=== PATIENT | male | born 2000 ===

== ENCOUNTER 2024-05-17 17:39 | Inpatient (IN) | payer BC ==
[2024-05-17] MEDS ORDERED: Morphine 2 MG/ML VIAL ONE (18:02)
[2024-05-17] MEDS ORDERED: Ondansetron PF 4 MG/2 ML Vial ONE (18:02)
[2024-05-17] MEDS ORDERED: Boostrix 0.5 ML (Tdap) VIAL (>/=7 yrs of age) ONE (18:03)
[2024-05-17 18:05] LABS: #Basophils 0.07 10x3/uL (0.0-0.2); %Basophils 0.7 % (0.0-1.0); %Eosinophils 4.1 % (0.0-10.0); %Lymphocytes 46.2 % (21.0-51.0); %Monocytes 4.8 % (0.0-10.0); Hematocrit 43.4 % (42.0-52.0); Hemoglobin 15.4 g/dL (14.0-18.0); Mean Corpuscular HGB CONC 35.5 g/dL (32.0-36.0); Mean Corpuscular Hemoglobin 29.6 pg (27.0-31.0); Mean Corpuscular Volume 83.3 fL (78.0-98.0); Mean Platelet Volume 10.2 fL (7.4-10.4); Platelet Count 270 10x3/uL (130-400); RBC Distribution Width 11.6 % (11.5-14.5); Red Blood Cell (RBC) Count 5.21 mill/uL (4.70-6.10)
[2024-05-17] MEDS ORDERED: Ipratropium/Albuterol 3 ML NEB NEB PRN (18:06)
[2024-05-17] MEDS ORDERED: Ondansetron PF 4 MG/2 ML Vial IVP PRN (18:06)
[2024-05-17 18:18] LABS: ALT (SGPT) 46 U/L (8-55); AST (SGOT) 28 U/L (5-34); Albumin 4.3 g/dL (3.5-5.0); Alkaline Phosphatase 76 U/L (40-110); Anion Gap 17 mmol/L (10-20); BUN (Urea Nitrogen) 16 mg/dL (8.9-20.6); Bilirubin, Total 0.3 mg/dL (0.2-1.2); Calc. Creatinine Clearance 0 mL/min (70-130); Calcium 9.3 mg/dL (7.8-10.44); Carbon Dioxide 20 mmol/L (22-29); Chloride 107 mmol/L (98-107); Estimated GFR 85; Globulin 2.8 g/dL (2.4-3.5); Glucose 119 mg/dL (70-105); Potassium 3.3 mmol/L (3.5-5.1); Protein, Total 7.1 g/dL (6.0-8.3); Sodium 141 mmol/L (136-145)
[2024-05-17] MEDS: Ketorolac Tromethamine 30 MG (1 mL) VIAL IVP SCH ×2 (19:00→23:58)
[2024-05-17] MEDS ORDERED: Sodium Chloride 0.9% 1,000 ML IV SCH (20:00)
[2024-05-17 20:18] VITALS: BMI 24.6
[2024-05-17] MEDS: Lactated Ringer's 1,000 ML IV SCH (20:37)
[2024-05-17] MEDS: Senokot S 8.6-50 MG TAB PO SCH (20:38)
[2024-05-17] MEDS: Morphine 4 MG/ML VIAL SLOW IVP PRN (20:38)
[2024-05-17] MEDS: traMADol HCl 50 MG TAB PO SCH (23:59)
[2024-05-18] MEDS ORDERED: CEFAZOLIN 2 GM in Sodium Chloride 0.9% 100 ML IVPB SCH (07:30)
[2024-05-18 08:09] LABS: Anion Gap 11 mmol/L (10-20); BUN (Urea Nitrogen) 14 mg/dL (8.9-20.6); Calc. Creatinine Clearance 156 mL/min (70-130); Calcium 8.5 mg/dL (7.8-10.44); Carbon Dioxide 24 mmol/L (22-29); Chloride 108 mmol/L (98-107); Estimated GFR 130; Glucose 97 mg/dL (70-105); Potassium 3.8 mmol/L (3.5-5.1); Sodium 139 mmol/L (136-145)
[2024-05-18] MEDS: Polyethylene Glycol 3350 17 GM Packet PO SCH (08:35)
[2024-05-18] MEDS: Morphine 2 MG/ML VIAL SLOW IVP PRN (09:04)
[2024-05-18 10:37] LABS: #Basophils 0.04 10x3/uL (0.0-0.2); %Basophils 0.5 % (0.0-1.0); %Eosinophils 3.5 % (0.0-10.0); %Lymphocytes 30.7 % (21.0-51.0); %Monocytes 7.5 % (0.0-10.0); %Neutrophils 57.5 % (42.0-75.0); Hematocrit 36.1 % (42.0-52.0); Hemoglobin 12.4 g/dL (14.0-18.0); Mean Corpuscular HGB CONC 34.3 g/dL (32.0-36.0); Mean Corpuscular Hemoglobin 29.9 pg (27.0-31.0); Platelet Count 189 10x3/uL (130-400); RBC Distribution Width 11.8 % (11.5-14.5); Red Blood Cell (RBC) Count 4.15 mill/uL (4.70-6.10)
[2024-05-18] MEDS ORDERED: fentaNYL PF 100 MCG/2 ML SYRINGE ONE (12:02)
[2024-05-18] MEDS ORDERED: Midazolam HCl 2 mg/2 ml Vial ONE (12:03)
[2024-05-18] MEDS ORDERED: PROPOFOL 20 ML ONE ×2 (12:03→12:58)
[2024-05-18] MEDS ORDERED: Lidocaine 1% PF 5 ML VIAL ONE (12:35)
[2024-05-18] MEDS ORDERED: Dexamethasone 20 MG/5 ML VIAL ONE (12:50)
[2024-05-18] MEDS ORDERED: Ondansetron PF 4 MG/2 ML Vial ONE (12:50)
[2024-05-18] MEDS ORDERED: PHENYLEPHRINE-NS 100 MCG/ML 10 ML SYRINGE ONE (12:50)
[2024-05-18] MEDS ORDERED: Ketorolac Tromethamine 30 MG (1 mL) VIAL ONE (13:10)
[2024-05-18] MEDS ORDERED: fentaNYL 50 mcg/mL 1 mL Vial ONE (14:39)
[2024-05-18] MEDS ORDERED: HYDROmorphone 0.5 MG/0.5 ML SYRINGE ONE (15:08)
[2024-05-18] MEDS ORDERED: Ondansetron HCl/PF 4 MG/2 ML Vial IVP PRN (15:15)
[2024-05-18] MEDS ORDERED: Promethazine HCl 25 MG/ML VIAL IM PRN (15:15)
[2024-05-18] MEDS: CEFAZOLIN 2 GM in Sodium Chloride 0.9% 100 ML IVPB SCH (19:54)
[2024-05-18] MEDS: traMADol HCl 50 MG TAB PO PRN (21:22)
[2024-05-19 06:25] LABS: Hematocrit 29.2 % (42.0-52.0); Hemoglobin 10.2 g/dL (14.0-18.0)
[2024-05-19] MEDS: Enoxaparin 40 MG (0.4 mL) SYRINGE SC SCH (08:42)
[2024-05-19 11:25] VITALS: BP 138/72; TEMP 98.1
[2024-05-20] MEDS ORDERED: FLU (Fluarix Triv) TS24-25(6MOS UP)/PF 45 MCG/0.5 ML Syringe IM ONE (09:00)
== END 2024-05-19 13:58 | disposition home or self-care (01) | DRG 482 ==
LOC: ERS 17:39 → SURG B 18:06
PROVIDERS: ADMIT Surgery; ATTEND Surgery
PROC: 0QS906Z Reposition Left Femoral Shaft with Intramedullary Internal Fixation Device, Open Approach (ICD-10-PCS; principal; 2024-05-18)
DX: S72.352A Displaced comminuted fracture of shaft of left femur, initial encounter for closed fracture (principal); V23.49XA Other motorcycle driver injured in collision with car, pick-up truck or van in traffic accident, initial encounter
CPT/HCPCS: 36415; 72170; 80048; 80053; 85014; 85018; 85025; 90471; 90715; 93005; 96374; 96375; C1713; G0390; J1100; J1650; J1885; J2250; J2272; J2405; J2704; J3010; J7120